=== PATIENT | female | born 1995 | race Caucasian/White ===

== ENCOUNTER 2018-12-23 07:28 | Inpatient (IN) ==
--- NOTE | 2018-12-23 08:40 | OB.PROGRES ---
Intake - - Reason for Visit/Chief Complaint: Onset of Labor Admitted From: Home - Estimated Due Date: 02/06/19 Gestational Age in Weeks and Days: 33 Weeks and 4 Days : 2 Para: 1 Term Births: 0 Births: 1 Living Children: 1 - Labs Blood Type and Rh: B- Group B Strep: Negative Hepatitis B Surface Antigen: Absent HIV: Negative Rubella Status: Immune VDRL/RPR: Absent Maternal - Vital Signs Last Taken Vital Signs: Vital Signs - Last Taken Temperature 97.8 F 12/23/18 07:54 Pulse Rate 73 12/23/18 07:54 Respiratory Rate 18 12/23/18 07:54 Blood Pressure 114/69 12/23/18 07:54 Pulse Ox 99 12/23/18 07:54 - Vaginal Discharge Vaginal Bleeding Amount: None Vaginal Discharge Amount: None Results - Labs CBC and BMP: 12/23/18 08:35 12/23/18 08:35 Assessment and Plan - Assessment / Plan Additional Assessment/Plan Details: The patient is a 23-year-old at 33-4/7 weeks who presented this morning to labor and delivery after anibal irregularly and then more regularly all weekend. No gush of fluid. No bleeding. Patient has a history of bleeding in her first and second trimester and has received serial doses of RhoGAM secondary to Rh-. No fever or chills. No abdominal pain. The baby has been growing well with the last growth scan just 1 week ago. The TESS has been normal. The patient has not bled since around 21 weeks gestation. The patient received RhoGAM one week ago which was scheduled. Please see the history below for her medical history. (The patient is a 23-year-old at 8-3/7 weeks by an ultrasound in radiology in [place], [place] on 06/21/2018 which showed an IUP at 6.1 weeks with an JESS of 02/14/2019. The patient did have some bleeding at that time and did receive RhoGAM since the patient is Rh-. The patient presents today for a new OB visit. Positive nausea. No emesis. Last she had emesis almost daily in the first trimester. Past medical history significant for hypothyroidism. Patient is followed by endocrinology in [place], [place]. Past surgical history significant for TMJ surgery. No known drug allergies No tobacco, no alcohol, no drugs. Menarche age 13 or 14. No STI history. No herpes history. No syphilis history. No recent travel to [place] endemic area. Patient's last Pap smear was last year. Normal. OB history with vaginal delivery 1. delivery at 35 weeks. Patient had labor and was treated with terbutaline. Patient did receive steroids. The patient delivered at [facility] in [place], [place]. The baby weighed 5 pounds) Objective: Well-developed well-nourished woman in no acute distress Lungs clear to auscultation Heart regular rate and rhythm Abdomen is gravid, soft, nontender, no guarding or rebound Cervix was 1 cm and 50% effaced by nurse's exam. There was some vaginal discharge present. Vaginosis panel collected. Extremities without edema. Reflexes were 1+ bilaterally. fibronectin was positive Urinalysis showed 5-15 white blood cells and 0-3 red blood cells with few epithelial cells. Small leukoesterase CBC showed normal white count and normal H&H and platelets. CMP showed normal liver function tests and renal function tests. Assessment: IUP 33-4/7 weeks with contractions. Urinalysis shows possible or probable urinary tract infection. The patient's cervix is dilated to 1 cm. Patient's group B strep last week was negative. fibronectin was positive. I explained to the patient that we do not use a positive fibronectin as a test that will determine a delivery. A negative fibronectin test is a sensitive test. Vaginosis panel was negative. Plan: The patient has received nifedipine 10 mg daily 20 minutes for 3 doses then every 4 hours The patient received her first dose of betamethasone 12 mg IM and will receive s econd dose in 24 hours. The nurse will recheck the patient 2 hours from her first cervical check to determine if there is cervical change. If there is significant cervical change, the patient will be administered magnesium sulfate 6 g bolus and then 3 g per hour and I will call maternal- medicine in [place], [place] for transfer. If the patient's cervix is unchanged, I will continue the nifedipine every 4 hours to determine if this will help slow her contractions. The patient has been admitted for observation. I would like to treat the patient's possible or probable urinary tract infecti on. I would usually use nitrofurantoin but there is a possibility that the patient may deliver soon, I will use cephalexin or Keflex 1000 mg 3 times a day until I have the urine culture results. I will give Ancef 2 g IV initially since the patient does have an IV currently and then every 8 hours and then with the IV is discontinued hopefully, the patient be placed on Keflex. Close observation Bedrest with bathroom privileges currently. Depending upon the patient's cervix check, this may change.
[2018-12-23 09:06] LABS: Hematocrit [HCT] 39.8 % (37.0-47.0); Hemoglobin [HGB] 13.8 g/dL (12.0-16.0); MEAN CORPUSCULAR HEMOGLOBIN 30.9 PG (27-31); MEAN CORPUSCULAR HGB CONC 34.7 g/dL (33-37); MEAN PLATELET VOLUME 11.3 FL (7.4-12.2); RED BLOOD COUNT 4.47 10^6/uL (4.20-5.40)
[2018-12-23 09:08] LABS: BILIRUBIN,URINE NEGATIVE (NEG); CLARITY,URINE CLEAR (CLEAR); COLOR,URINE YELLOW (Y); GLUCOSE, URINE (UA) NEGATIVE (NEG); OCCULT BLOOD,URINE NEGATIVE (NEG); PROTEIN,URINE NEGATIVE (NEG); UROBILINOGEN,URINE 0.2 EU/dL (0.2)
[2018-12-23 09:14] LABS: RBC,URINE 0-3 /hpf; URINE SAMPLE TYPE CLEAN CATCH URINE
[2018-12-23] MEDS ORDERED: Lactated Ringers 1,000 ML PRIMARY IV ONE (09:14)
[2018-12-23 09:15] LABS: BACTERIA,URINE FEW; SQUAMOUS EPITHELIAL CELL,UR FEW
[2018-12-23 09:16] LABS: BLOOD UREA NITROGEN 5 mg/dL (7-22); SERUM ALBUMIN 3.9 g/dL (3.5-4.8)
[2018-12-23] MEDS ORDERED: BETAMET ACET/BETAMET NA PH 6 MG/1 ML - 5 ML IM SCH (10:00)
[2018-12-23] MEDS: NIFEdipine 10 MG CAPSULE PO SCH ×3 (10:07→10:52)
[2018-12-23] MEDS ORDERED: LIDOCAINE W/ SODIUM BICARB 0.5 ML SYR SUBD PRN (11:17)
[2018-12-23] MEDS ORDERED: ONDANSETRON 4 MG/2 ML VIAL IVP PRN (11:17)
--- NOTE | 2018-12-23 11:30 | DI ---
LIMITED OBSTETRICAL ULTRASOUND FOR TESS, 12/23/2018 8:41 AM: Clinical History: contractions. History of delivery. Previous Exam: 12/17/2018. 02/06/2019. Unknown. Cervical Length: Not measurable. TESS: 18.2 cm. Amnionic Fluid Content: normal. Lie: Vertex presentation. Placental Location and Grade: Anterior corpus. Grade 1. Heart Rate: 147 beats per minute. Reading: Amnionic fluid index is 18.2 cm.
[2018-12-23] MEDS ORDERED: ceFAZolin Inj 2gm (Premix) 2 GM/50 ML BAG IV ONE (11:46)
[2018-12-23] MEDS: Lactated Ringers 1,000 ML PRIMARY IV SCH ×3 (11:49→19:49)
[2018-12-23] MEDS: ceFAZolin Inj 2gm (Premix) 2 GM/50 ML BAG IV SCH ×2 (12:01→20:18)
[2018-12-23] MEDS ORDERED: Magnesium Sulfate 2gm (Premix) 2 GM/50 ML BAG IV ONE ×2 (12:07→12:12)
[2018-12-23] MEDS ORDERED: CALCIUM GLUCONATE 100 MG/1 ML - 10 ML IVP PRN (12:07)
[2018-12-23] MEDS ORDERED: Magnesium Sulfate 4gm (Premix) 4 GM/100 ML BAG IV ONE ×2 (12:07→12:12)
[2018-12-23] MEDS ORDERED: Magnesium Sulfate (Premix) 20 GM/500 ML BAG IV ONE (12:13)
[2018-12-23] MEDS ORDERED: Magnesium Sulfate (Premix) 20 GM/500 ML BAG IV SCH (12:15)
[2018-12-23] MEDS ORDERED: LIDOCAINE HCL 2 % 10 ML JELLY URO-JECT TOPICAL PRN (12:28)
--- NOTE | 2018-12-23 13:12 | OB.PROGRES ---
Interval History: With the magnesium sulfate loading dose, the patient did have some nausea and emesis and flushing. She is feeling better now that the loading doses completed. Objective - Cervical Exam Cervical Exam: 3-4 with no blood on my glove digit. The patient has most likely been near 4 cm on both of my exams. Effacement is about the same. Membranes could be palpated. [place]: Every 2-3 minutes Heart Rate Interpretation Category: Category I - Labs CBC and BMP: 12/23/18 08:35 12/23/18 08:35 - Vital Signs Last Taken Vital Signs: Vital Signs - Last Taken Temperature 97.8 F 12/23/18 07:54 Pulse Rate 81 12/23/18 10:28 Respiratory Rate 18 12/23/18 10:28 Blood Pressure 108/59 12/23/18 11:30 Pulse Ox 99 12/23/18 10:28 Assessment and Plan - Assessment / Plan Additional Assessment/Plan Details: Assessment: IUP 33-4/7 weeks with labor. There is essentially not been cervical change in 1 hour. I called the patient 3-4 cm but most likely she has essentially been 4 cm with both checks. The membranes are intact GBS negative one week ago fibronectin positive UA was positive for UTI. Culture is pending Patient has received magnesium sulfate 6 g bolus and now is receiving 3 g per hour. The patient received 1 dose of Ancef 2 g IV for UTI The patient received betamethasone 12 mg IM The patient did receive 3 doses of nifedipine 10 mg daily 20 minutes but when the patient's cervix was found to be changed, this was discontinued when the patient was placed on magnesium sulfate. The patient will be transferred to [place] secondary to labor unless the patient's cervix changes significantly by the time the flight crew arrives here. I checked the patient just now to determine if there was significant cervical change that we would want to change the cruise to the NICU crew. There is not been significant change, so the crew to transport the patient will fly appear from [place].
[2018-12-23] MEDS ORDERED: NIFEdipine 10 MG CAPSULE PO SCH (15:00)
[2018-12-23] MEDS ORDERED: fentaNYL Inj 100 MCG/2 ML VIAL IVP PRN (15:46)
--- NOTE | 2018-12-23 15:46 | OB.PROGRES ---
Interval History: The patient states that her contractions have increased in intensity a little bit after the 2 cervical exams. No gush of fluid. No bleeding. Objective - Cervical Exam Cervical Exam: The transport nurse thought the patient was 5 cm dilated. I examined the patient again and I thought that she was essentially unchanged at 4 cm and 80% effaced. I did not stretch the cervix when I checked the patient's cervix. The baby is in cephalic presentation. Membranes intact. Membranes were also palpated. Membranes were not bulging when patient was not having a contraction. [place]: Retractions every 2-3 minutes. Heart Rate Interpretation Category: Category I - Labs CBC and BMP: 12/23/18 08:35 12/23/18 08:35 - Vital Signs Last Taken Vital Signs: Vital Signs - Last Taken Temperature 98 F 12/23/18 14:55 Pulse Rate 116 H 12/23/18 15:00 Respiratory Rate 18 12/23/18 15:00 Blood Pressure 116/55 12/23/18 15:00 Pulse Ox 98 12/23/18 15:00 Assessment and Plan - Assessment / Plan Additional Assessment/Plan Details: Assessment/plan: IUP 33-4/7 weeks with labor. By previous exams and with the patient's initial exam thought to be 1 cm dilated, the patient was thought to be 5 cm by the flight nurse that was going to transport the patient to [place]. By my exam, I thought the patient was essentially unchanged at 4 cm. However, after the 2 exams, the patient had more discomfort with her contractions. There was no blood on my glove did digits after the exam. Membranes were palpated and they were intact. Baby is in cephalic presentation. The flight transport team did not want to transport the patient secondary to the risk of PPROM while in air and delivery while flying to [place] and I understood this. Unfortunately, I'm not sure when the patient will deliver. The transport team will fly back down to [place] and bring the NICU team to [facility]. I did increase the magnesium sulfate 3-1/2 g per hour IV. The patient did not request but I offered to give the patient fentanyl 50 g IV to determine if this would help some of her discomfort SCDs will be placed.
[2018-12-23] MEDS ORDERED: Lidocaine/Epi Inj 1.5% 5 ML AMPUL EPIDURAL ONE (18:47)
[2018-12-23] MEDS ORDERED: Fent/Bupiv 2mcg/0.0625% Epid 250 ML ONE (19:01)
--- NOTE | 2018-12-23 19:36 | OB.PROGRES ---
Interval History: The patient stated that she felt a gush of fluid around 1800 hrs. The nurses thought that she had ruptured and checked her and she still had her membranes intact but they thought that it was a 4 bag since the patient had a gush of fluid. At that time the nurse thought that she was 5-6 cm dilated. The patient wanted an epidural secondary to pain with contractions. Currently, the patient is feeling much better. Epidural was placed. Magnesium sulfate was discontinued a little after 1800 hrs. since she had a fore-bag rupture. Objective - Cervical Exam Cervical Exam: 5-6/90/-3. AROM was completed with clear fluid. This was completed after NICU team arrived and set up. [place]: Every 3 minutes Heart Rate Interpretation Category: Category I - Labs CBC and BMP: 12/23/18 08:35 12/23/18 08:35 - Vital Signs Last Taken Vital Signs: Vital Signs - Last Taken Temperature 98 F 12/23/18 18:00 Pulse Rate 84 12/23/18 18:00 Respiratory Rate 16 12/23/18 18:00 Blood Pressure 98/47 12/23/18 18:00 Pulse Ox 96 12/23/18 18:00 Assessment and Plan - Assessment / Plan Additional Assessment/Plan Details: Assessment: IUP 33-4/7 weeks with labor with IM Cel[place] given this morning as well as magnesium sulfate 6 g bolus and then 3 g per hour which was increased to 3-1/2 g per hour. GBS negative Possible lower probable urinary tract infection patient was given 1 dose of Ancef 2 g IV The patient has a history of delivery at 35 weeks gestation and has been receiving [place] injections to try to prevent delivery weekly since 16 weeks gestation. She has also been followed closely and has done well until Sunday-like 2018 when she started anibal intermittently. Unfortunately, the patient did not present to labor and delivery until this morning on 12/23/2018. fibronectin was positive. Magnesium sulfate was discontinued around 1808 hrs. this evening after that gush of fluid. The transport team was called but when the transport team arrived the patient was anibal every 2-3 minutes and the nurse thought that she was 5 cm although I thought she was still 4 cm dilated. The transport team would not take the patient and they flew back to [place] and now the NICU team is here for the delivery of the . AROM only occurred secondary to the patient having a small gush of fluid or thought to be gush of fluid at about 1800 hrs. With AROM, there was still membranes intact and a large amount of clear fluid with AROM. Plan: Expectant management with close observation. The NICU transport team has been discussing and will continue to discuss with the mother the process and the plan for her once her baby is born. Delayed cord clamping will occur if the patient and are doing well.
[2018-12-23] MEDS ORDERED: Oxytocin 20 Units + LR 20 UNIT/1,000 ML BAG IV ONE (19:37)
--- NOTE | 2018-12-23 19:47 | CRNA.PROCE ---
Central Neuraxis Block Placemt - - Safety Measures: Time Out Taken - - Type of Block: Epidural Reason for Block: Analgesia Moniters Used During Block: SPO2, NIBP Positioning: Sitting Skin Prep Used: ChloroPrep Draped: Yes Skin Infiltration - Enter Amount Used in Comment Field: 1% Xylocaine (mL): Yes (skin wheal) Spinal Needle Used: 18 Hustead 80 mm Local Anesthetic - Enter Amount Used in Comment Field: 1.5 % Xylocaine with Epinephrine 1:200,000 (mL): Yes (5ml) Number of Centimeters Catheter Threaded: 4 Bioclusive Dressing Applied: Yes Anesthesia Time - Other Weight: 70.307 kg Height: 5 ft 5 in Body Mass Index (BMI): 25.7
--- NOTE | 2018-12-23 19:48 | CRNA.PROGR ---
Anesthesia Time - Procedure/Recovery Time Start Date: 12/23/18 End Date: 12/23/18 Anesthesia : Time In: 18:30 Anesthesia : Time Out: 23:30 Anesthesia : Total Time: 300 - Total Anesthesia Time Total Anesthesia Time (minutes): 300 - Other Weight: 70.307 kg Height: 5 ft 5 in Body Mass Index (BMI): 25.7 Physical Status: P2 Anesthesia Type: Epidural Obstetrics: Planned vaginal delivery w/ neuraxial labor anesthesia/analog
[2018-12-23] MEDS ORDERED: fentaNYL 2 MCG/BUPIVACAINE 0.0625%/NS 0.9% 250 ML BAG EPIDURAL SCH (20:00)
--- NOTE | 2018-12-23 20:19 | OB.PROGRES ---
Interval History: The patient states that she is comfortable with her epidural and the magnesium sulfate effects are starting to resolve Objective - Cervical Exam Cervical Exam: 590/-2 cephalic [employer]: Contractions every 4-5 minutes Heart Rate Interpretation Category: Category I - Labs CBC and BMP: 12/23/18 08:35 12/23/18 08:35 - Vital Signs Last Taken Vital Signs: Vital Signs - Last Taken Temperature 98 F 12/23/18 18:00 Pulse Rate 84 12/23/18 18:00 Respiratory Rate 16 12/23/18 18:00 Blood Pressure 98/47 12/23/18 18:00 Pulse Ox 96 12/23/18 18:00 Assessment and Plan - Assessment / Plan Additional Assessment/Plan Details: Assessment: IUP 33-4/7 weeks with no change in her cervix since AROM. GBS negative Possible UTI History of delivery at 35 weeks AROM with clear fluid Plan: Continue close observation and expectant management.
[2018-12-23] MEDS ORDERED: MISOPROSTOL 200 MCG TABLET RECTAL PRN (21:55)
[2018-12-23] MEDS ORDERED: TERBUTALINE SULFATE 1 MG/1 ML SDV SUBCUT PRN (21:55)
[2018-12-23] MEDS ORDERED: CITRIC ACID/SODIUM CITRATE 30 ML CUP PO PRN (21:55)
[2018-12-23] MEDS ORDERED: OXYTOCIN 10 UNIT/1 ML IM PRN (21:55)
[2018-12-23] MEDS ORDERED: METHYLERGONOVINE MALEATE 0.2 MG/1 ML VIAL IM PRN (21:55)
[2018-12-23] MEDS ORDERED: Carboprost Inj 250 MCG/ML AMP IM PRN (21:55)
[2018-12-23] MEDS ORDERED: Lidocaine 1% 10 MG/ML - 20 ML VIAL SUBCUT PRN (21:55)
[2018-12-23] MEDS ORDERED: CefOXitin Inj 2 GM in Sodium Chloride 0.9% 100 ML IV PRN (21:55)
[2018-12-23] MEDS ORDERED: FAMOTIDINE 20 MG/2 ML VIAL IVP PRN (21:55)
[2018-12-23] MEDS ORDERED: Metoclopramide Inj 10 MG/2 ML VIAL IV PRN (21:55)
[2018-12-23] MEDS ORDERED: Oxytocin 20 Units + LR 20 UNIT/1,000 ML BAG IV SCH (22:00)
--- NOTE | 2018-12-24 | OB.DEL.SUM ---
Delivery Note Delivery Summary: Delivery note: The patient's cervix dilated to complete and the patient had pelvic pressure. The patient was placed in the dorsal lithotomy position and started to push. The patient had an excellent expulsive effort. After several pushes, the patient delivered the head in the OA and then SPENCER position. The baby's mouth and nose were bulb suctioned. The baby's fist was at his chin and there was a cord but not a nuchal cord along with the baby's fist. The baby's anterior and then posterior shoulder was delivered and then the was delivered atraumatically. Delayed cord clamping was allowed for at least 30 seconds. The baby was placed on the mother's abdomen and chest. The cord was clamped and then cut. The baby was brought to the warmer with the NICU team and Dr. Rivas present. A section of cord was obtained for cord gases. Cord blood was then obtained. The mother is Rh-. The patient had a small first-degree laceration that was repaired with 3-0 Vicryl Rapide suture in a continuous fashion. The placenta then delivered spontaneously. The placenta was examined and appeared intact. There was minimal bleeding with fundal massage after the delivery of placenta. The mother would recover in the room. The baby would be brought to the NICU in [place], [place] via jet transport. Findings were a male infant with Apgars of 9 and 9 weight was 5 lbs. 1 oz. EBL was 350 mL ABG showed a pH of 7.37, PCO2 of 31.1, HCO3 of 18.1, base excess of -7
[2018-12-24] MEDS ORDERED: Lidocaine 1% 10 MG/ML - 20 ML VIAL INTRADERM PRN (01:12)
[2018-12-24] MEDS ORDERED: DIPH,PERTUSS,TET(ADACEL) VAC/PF 0.5 ML (Tdap) IM ONE (01:12)
[2018-12-24] MEDS ORDERED: IBUPROFEN 800 MG TABLET PO PRN (01:12)
[2018-12-24] MEDS ORDERED: LIDOCAINE HCL 2 % 10 ML JELLY URO-JECT TOPICAL PRN (01:12)
[2018-12-24] MEDS ORDERED: Nalbuphine Inj 20 MG/ML Ampule IVP PRN (01:12)
[2018-12-24] MEDS ORDERED: diphenhydrAMINE 50 MG/1 ML VIAL IVP PRN (01:12)
[2018-12-24] MEDS ORDERED: CALCIUM CARBONATE 500 MG (TUMS) CHEWABLE TABLET PO PRN (01:12)
[2018-12-24] MEDS ORDERED: Oxytocin 20 Units + LR 20 UNIT/1,000 ML BAG IV SCH (01:12)
[2018-12-24] MEDS ORDERED: ONDANSETRON 4 MG/2 ML VIAL IVP PRN (01:12)
[2018-12-24] MEDS ORDERED: diphenhydrAMINE 25 MG CAPSULE PO PRN (01:12)
[2018-12-24] MEDS ORDERED: ACETAMINOPHEN 325 MG TABLET PO PRN (01:12)
[2018-12-24] MEDS ORDERED: GLYCERIN/WITCH HAZEL 1 BOX TOPICAL PRN (01:12)
[2018-12-24] MEDS ORDERED: LANOLIN HPA 40 GM TUBE TOPICAL PRN (01:12)
[2018-12-24] MEDS ORDERED: BENZOCAINE/MENTHOL SPRAY 56 GM BOTTLE TOPICAL PRN (01:12)
[2018-12-24] MEDS ORDERED: HYDROcodone-APAP 5 MG -325 MG TABLET PO PRN (01:12)
[2018-12-24] MEDS ORDERED: Ondansetron ODT Tab 4 MG TAB PO PRN (01:12)
[2018-12-24 04:49] LABS: Hematocrit [HCT] 31.3 % (37.0-47.0); Hemoglobin [HGB] 10.9 g/dL (12.0-16.0); MEAN CORPUSCULAR HEMOGLOBIN 31.2 PG (27-31); MEAN CORPUSCULAR HGB CONC 34.8 g/dL (33-37); MEAN CORPUSCULAR VOLUME 89.7 FL (81-99); MEAN PLATELET VOLUME 11.1 FL (7.4-12.2); RED BLOOD COUNT 3.49 10^6/uL (4.20-5.40)
[2018-12-24] MEDS ORDERED: LEVOTHYROXINE 50 MCG TABLET PO ONE (08:00)
[2018-12-24] MEDS ORDERED: Prenatal Multivitamin Tab 1 TAB TAB PO SCH ×2 (09:00)
[2018-12-24] MEDS ORDERED: DOCUSATE 100 MG CAPSULE PO SCH (09:00)
[2018-12-24] MEDS ORDERED: POLYETHYLENE GLYCOL 3350 17 GM POWDER PO SCH (09:00)
[2018-12-24] MEDS: RHO(D) IMMUNE GLOBULIN 1500 UNIT(300 mcg)SYRIN IM PRN ×2 (12:04→14:06)
--- NOTE | 2018-12-24 12:18 | CRNA.PROGR ---
Anesthesia Note - Progress Notes Anesthesia Progress Note: Post Epidural Note Pt is sitting up in bed, she is dressed and ready for discharge. She has been up to restroom and ambulating. She denies any residual problems from the epidural. Current VS are stable. Vital Signs - Last Taken Temperature 97.9 F 12/24/18 08:24 Pulse Rate 64 12/24/18 08:24 Respiratory Rate 18 12/24/18 08:24 Blood Pressure 100/58 12/24/18 08:24 Pulse Ox 97 12/24/18 08:24
--- NOTE | 2018-12-24 12:19 | OB.PROGRES ---
Subjective Post Day: 1 Pain Management: PO Molina Catheter: No Flatus: Yes Lochia Color: Rubra/Red Scant < 10 ml Diet: Regular Feeding Method: / Bottle (The patient is pumping. Her baby is in [place]) Ambulating: Yes Concerns / Additional Information: The patient feels well. The patient would like to go home so that she can go down to [place] to see her -Benito. The patient states that her baby is doing well. Bottle feeding. Objective - General General Appearance: POSITIVE: No Acute Distress, Cooperative - Cardiovacular Cardiovascular Exam: POSITIVE: RRR Edema: No Pedal Edema Extremities: Negative Ryan's - Bilaterally - Respiratory Respiratory Exam: POSITIVE: Clear to Auscultation - Bilaterally - Fundus/Lochia/Perineum Uterus Position: POSITIVE: Below Umbilicus (Firm) Assesstment / Plan Assessment / Plan: Assessment: day #1 status post spontaneous vaginal delivery of 33-4/7 week infant male The patient is doing well. H&H is 10.9 and 31.3. The patient's cramping is well controlled. Patient's bleeding is minimal. The patient's is doing well but is in [place] and the NICU. Room air currently. Plan: Discharge home Usual instructions and precautions The patient does have a history of depression with her first delivery. I did offer the patient an antidepressant secondary to this. The patient states that currently she does not think she will need this but will be on the look out as well as her parents and her significant other. Discharge medications ibuprofen 800 mg 1 tablet by mouth 3 times a day with food or milk for 5 days and then 3 times a day as needed Ferrous sulfate 325 mg 1 tablet by mouth daily for 30 days. No refills Colace 100 mg capsule 1 capsule by mouth twice a day for constipation The patient should continue a multivitamin daily. Contraception will be discussed at the 6 week visit. Sits baths 1 or 2 times a day for her small laceration that was repaired Pelvic rest for 6 weeks The patient should call and make a follow-up visit for 6 weeks with me. I will be glad to see her sooner for any issues. I know that she will be busy with her in [place] for a little while and then the patient does live an hour away.
[2018-12-24] MEDS ORDERED: RHO(D) IMMUNE GLOBULIN 1500 UNIT(300 mcg)SYRIN IM ONE (14:00)
[2018-12-25] MEDS ORDERED: ePHEDrine Inj 50 MG/ML AMP ONE (17:16)
== END 2018-12-24 14:45 | disposition home or self-care (01) | DRG 806 ==
LOC: OBOP 07:28 → OBIP 07:28
PROVIDERS: ADMIT Obstetrics & Gynecology; ATTEND Obstetrics & Gynecology